=== PATIENT | male | born 1980 | race African-American/Black ===

== ENCOUNTER 2018-04-23 22:54 | Emergency (ER) | payer OTHER ==
[~2018-04-23] VITALS: Ht 172.7 cm; Wt 59.0 kg
[2018-04-23 23:10] VITALS: BP 159/88
[2018-04-24] MEDS ORDERED: HYDR-3164 PO (00:08)
[2018-04-24] MEDS ORDERED: CLIN150C14 PO (00:09)
--- NOTE | 2018-04-24 00:09 | PHYS DOC ---
Past Medical History Past Medical History: No Pertinent History Past Surgical History: Other Additional Past Surgical Histo: RIGHT HAND SKIN GRAFT Alcohol Use: Occasionally Drug Use: None Adult General Chief Complaint Chief Complaint: DENTAL PROBLEM HPI HPI 37-year-old male presents to ER with complaints of right upper dental pain with right-sided facial swelling which has been gradually worsening over the past 3-4 days. He denies any recent dental visits. He reports he took Excedrin with minimal relief in pain. He denies fever or N/V. He reports pain is at site of chipped tooth from previous dental injury. Denies recent injury. Patient is a daily smoker. Review of Systems Review of Systems Constitutional: Denies fever or chills [] Eyes: Denies change in visual acuity, redness, or eye pain [] HENT: Denies nasal congestion or sore/swollen throat. Denies difficulty swallowing. Reports rt upper front chipped tooth with swelling/pain around gum Respiratory: Denies cough or shortness of breath [] Cardiovascular: No additional information not addressed in HPI [] GI: Denies nausea, vomiting Musculoskeletal: Denies neck/jaw pain or stiffness- denies difficulty opening mouth Integument: Denies rash or skin lesions [] Neurologic: Denies headache, focal weakness or sensory changes. Denies dizziness All other systems were reviewed and found to be within normal limits, except as documented in this note. Allergies Allergies Allergies Coded Allergies Type Severity Reaction Last Updated Verified Penicillins Allergy Intermediate 04/23/18 Yes Physical Exam Physical Exam Constitutional: Well developed, well nourished, mild distress, non-toxic appearance. [] HENT: Normocephalic, atraumatic, bilateral ears normal, mucous membranes pink/dry with cigarette odor on breath- front rt upper gum swelling/erythema surrounding broken front tooth and next 2 teeth to rt upper site- no abscess visible- upper palate soft. Multiple caries on exam. No pharyngeal swelling/erythema- uvula midline, no oral exudates, nose normal. Rt side facial swelling at cheek- no orbital/eye involvement or crepitus. Eyes: Pupils equal- no orbital swelling, conjunctiva normal, no discharge. [] Neck: Normal range of motion, no tenderness/nuchal rigidity, supple, no stridor/gross adenopathy Cardiovascular:Heart rate regular Lungs & Thorax: Resp. equal/nonlabored Skin: Warm, dry, no erythema, no rash. Extremities: ROM intact, no edema. [] Neurologic: Alert and oriented X 3, normal motor function, normal sensory function, no focal deficits noted. [] Psychologic: Affect normal, judgement normal, mood normal. [] Current Patient Data Vital Signs EKG EKG [] Radiology/Procedures Radiology/Procedures [] Course & Med Decision Making Course & Med Decision Making Pt was evaluated in the ER for c/o rt upper dental infection and had swelling/erythema surrounding rt upper gum line at broken tooth- no abscess palp/visible. Pt had multiple caried. Discussed need for f/u with dentist STEPHEN- will provide dental resource sheet with d/c paperwork. Smoking cessation was discussed. Education provided on increasing flds, Ibuprofen/tylenol use, warm salt swishes, and soft food diet. Discussed d/c instructions with plans to provide Rx for Clindamycin. Will provide sm. quantity [place] for pain. Education provided on s&s to return to ER for. Dragon Disclaimer Disha Disclaimer This electronic medical record was generated, in whole or in part, using a voice recognition dictation system. Departure Departure Impression: Primary Impression: Dental caries Disposition: HOME, SELF-CARE Condition: STABLE Referrals: NO PCP (PCP) Patient Instructions: Dental Caries Additional Instructions: Follow-up with a dentist as soon as possible for further care as you have multiple dental cavities. Avoid smoking. Plenty of fluids. You can continue to take ibuprofen as directed on container or other NSAID such as Excedrin or Aleve for additional pain medication avoid taking extra then advised dosages. If taking [place] tablets do not drive or drink alcohol. Avoid taking additional Tylenol as [place] contains acetaminophen. Scripts Clindamycin Hcl (CLINDAMYCIN HCL) 150 Mg Capsule 3 CAP PO TID for 10 Days, CAP Prov: FERMIN KOENIG APRN 04/24/18 Hydrocodone/Apap 5-325 (NORCO 5-325 TABLET) 1 Each Tablet 1 TAB PO PRN Q6HRS PRN for PAIN, #8 TAB 0 Refills No driving or drinking alcohol if taking this medication Prov: FERMIN KOENIG APRN 04/24/18 FERMIN KOENIG APRN Apr 24, 2018 00:09
== END 2018-04-24 00:17 | disposition home or self-care (01) ==
LOC: ER 22:54
DX: K02.9 Dental caries, unspecified (principal); Z88.0 Allergy status to penicillin
CPT/HCPCS: 99283

== ENCOUNTER 2018-07-30 14:26 | Emergency (ER) | payer OTHER ==
[~2018-07-30] VITALS: Ht 172.7 cm; Wt 63.5 kg
[~2018-07-30 14:26] MED LIST: CLIN150C14 PO; HYDR-3164 PO
[2018-07-30 15:02] VITALS: BP 132/83
[2018-07-30 15:35] LABS: BILIRUBIN,URINE SMALL (NEG); CLARITY,URINE CLEAR; COLOR,URINE AMBER; NITRITE,URINE NEGATIVE (NEG); PROTEIN,URINE 30 mg/dL (NEG-TRACE); UROBILINOGEN,URINE 0.2 mg/dL (0.2 mg/dL)
[2018-07-30 15:40] LABS: SQUAMOUS EPITHELIAL CELL,UR FEW /LPF; WBC,URINE >40 /HPF (0-4)
[2018-07-30 15:41] LABS: BACTERIA,URINE 0 /HPF (0-FEW); RBC,URINE OCC /HPF (0-2)
[2018-07-30] MEDS ORDERED: AZITHROMYCIN 250 MG TABLET. PO ONE (15:45)
[2018-07-30] MEDS ORDERED: cefTRIAXone IM 250 MG VIAL IM ONE (15:45)
[2018-07-30] MEDS ORDERED: DOXY100C2 PO (16:40)
--- NOTE | 2018-07-30 16:40 | PHYS DOC ---
Past Medical History Past Medical History: No Pertinent History Past Surgical History: No Surgical History Additional Past Surgical Histo: RIGHT HAND SKIN GRAFT Smoking: Cigarettes, 1 Pack Per Day Alcohol Use: Occasionally Drug Use: None Adult General Chief Complaint Chief Complaint: URINARY FREQUENCY HPI HPI Patient is a 38 year old male who presents with scrotum pain, dysuria, and frequency. States the scrotum pain started today the urinary symptoms started . Rates his pain as 8 out of 10 and throbbing and sharp. Tried Excedrin before he came with minimal improvement. Review of Systems Review of Systems Constitutional: Denies fever or chills [] Eyes: Denies change in visual acuity, redness, or eye pain [] HENT: Denies nasal congestion or sore throat [] Respiratory: Denies cough or shortness of breath [] Cardiovascular: No additional information not addressed in HPI [] GI: Denies abdominal pain, nausea, vomiting, bloody stools or diarrhea [] : Reports dysuria and frequency. Musculoskeletal: Reports lower back pain denies joint pain [] Integument: Denies rash or skin lesions [] Neurologic: Denies headache, focal weakness or sensory changes [] Complete systems were reviewed and found to be within normal limits, except as documented in this note. Current Medications Current Medications Current Medications Medications (Trade) Dose Ordered Sig/Cindy Start Time Stop Time Status Last Admin Dose Admin Azithromycin (Zithromax) 1,000 mg 1X ONCE 07/30/18 15:45 07/30/18 15:47 DC 07/30/18 16:25 1,000 MG Ceftriaxone Sodium (Rocephin Im) 250 mg 1X ONCE 07/30/18 15:45 07/30/18 15:47 DC 07/30/18 16:25 250 MG Allergies Allergies Allergies Coded Allergies Type Severity Reaction Last Updated Verified Penicillins Allergy Intermediate 04/23/18 Yes Physical Exam Physical Exam Constitutional: Well developed, well nourished, no acute distress, non-toxic appearance. [] HENT: Normocephalic, atraumatic, bilateral external ears normal, oropharynx moist, no oral exudates, nose normal. [] Eyes: PERRLA, EOMI, conjunctiva normal, no discharge. [] Neck: Normal range of motion, no tenderness, supple, no stridor. [] Cardiovascular:Heart rate regular rhythm, no murmur [] Lungs & Thorax: Bilateral breath sounds clear to auscultation [] Abdomen: Bowel sounds normal, soft, no tenderness, no masses, no pulsatile masses. [] Skin: Warm, dry, no erythema, no rash. [] Back: No tenderness, no CVA tenderness. [] Extremities: No tenderness, no cyanosis, no clubbing, ROM intact, no edema. [] Neurologic: Alert and oriented X 3, normal motor function, normal sensory function, no focal deficits noted. [] Psychologic: Affect normal, judgement normal, mood normal. [] Current Patient Data Vital Signs Vital Signs Date Time Temp Pulse Resp B/P (MAP) Pulse Ox O2 Delivery O2 Flow Rate FiO2 07/30/18 15:02 98.5 93 16 132/83 (99) 99 Room Air 98.5 Lab Values Laboratory Tests Test 07/30/18 15:24 Urine Collection Type Unknown Urine Color Basilia Urine Clarity Clear Urine pH 6.0 Urine Specific [place] >=1.030 Urine Protein 30 mg/dL (NEG-TRACE) Urine Glucose (UA) Negative mg/dL (NEG) Urine Ketones (Stick) Trace mg/dL (NEG) Urine Blood Negative (NEG) Urine Nitrite Negative (NEG) Urine Bilirubin Small (NEG) Urine Urobilinogen Dipstick 0.2 mg/dL (0.2 mg/dL) Urine Leukocyte Esterase Moderate (NEG) Urine RBC Occ /HPF (0-2) Urine WBC >40 /HPF (0-4) Urine Squamous Epithelial Cells Few /LPF Urine Bacteria 0 /HPF (0-FEW) Urine Mucus Marked /LPF EKG EKG [] Radiology/Procedures Radiology/Procedures []PATIENT: FREDY MUÑOZ DACCOUNT: [id number]#: [id number] : 1980 LOCATION: ER AGE: 38 SEX: M EXAM STATUS: REG ER ORD. PHYSICIAN: ALFREDITO MEDLEY APRN REASON: testicular pain PROCEDURE: TESTICULAR/SCROTUM Testicular ultrasound HISTORY: Groin pain. Frequent urination. FINDINGS: Right testicle measures 3.8 x 2.2 x 2.9 cm. No focal lesion. Vascularity appears within normal limits as does echotexture. Right epididymis unremarkable. Left testicle measures 4.0 x 1.9 x 2.7 cm. No focal lesion. Vascularity and echotexture appears within normal limits. Small vascular structure at the left epididymal body, may represent a small varicocele. IMPRESSION: 1. No abnormality of either testicle. 2. Possible small left varicocele. Electronically signed by: Alfredito Lozano MD (07/30/2018 4:48 PM) [facility] Course & Med Decision Making Course & Med Decision Making Pertinent Labs and Imaging studies reviewed. (See chart for details) Will get UA, Testicular Ultrasound, and GC/Chlamydia Urine. Will treat prophylactically for STD with Rocephin and Azithromycin. Will also send home with Doxycycline 100 mg BID once daily for 10 days. Urine shows bacteria. Ultrasound was negative. Dragon Disclaimer Dragon Disclaimer This electronic medical record was generated, in whole or in part, using a voice recognition dictation system. Departure Departure Impression: Primary Impression: Dysuria Disposition: HOME, SELF-CARE Condition: STABLE Referrals: NO PCP (PCP) Patient Instructions: Epididymitis Additional Instructions: Thank you for visiting [facility]. We appreciate you trusting us with your care. If any additional problems come up don't hesitate to return to visit us. Please follow up with your primary care provider so they can plan additional care if needed and know about the problem that you had. If symptoms worsen come back to the Emergency Department. Any concerning symptoms that start such as chest pain, shortness of Air, weakness or numbness on one side of the body, running high fevers or any other concerning symptoms return to the ER. Please fill your medications at any pharmacy and follow the prescription instructions. If your STD testing results are positive you will get the results in 2-3 business days. You have been prescribed an antibiotic today to help fight your infection. Please take all of the antibiotic as directed. If after 48 hours the infection is not improving, please return for more care. If the infection worsens, return to ER for additional care. Scripts Doxycycline Hyclate (DOXYCYCLINE HYCLATE) 100 Mg Capsule 1 CAP PO BID for 10 Days, #20 CAP Prov: ALFREDITO MEDLEY APRN 07/30/18 ALFREDITO MEDLEY APRN Jul 30, 2018 16:40
--- NOTE | 2018-07-30 16:52 | RAD ---
Testicular ultrasound HISTORY: Groin pain. Frequent urination. FINDINGS: Right testicle measures 3.8 x 2.2 x 2.9 cm. No focal lesion. Vascularity appears within normal limits as does echotexture. Right epididymis unremarkable. Left testicle measures 4.0 x 1.9 x 2.7 cm. No focal lesion. Vascularity and echotexture appears within normal limits. Small vascular structure at the left epididymal body, may represent a small varicocele. IMPRESSION: 1. No abnormality of either testicle. 2. Possible small left varicocele. Electronically signed by: Alfredito Lozano MD (07/30/2018 4:48 PM) [facility]
== END 2018-07-30 17:05 | disposition home or self-care (01) ==
LOC: ER 14:26
DX: R30.0 Dysuria (principal); N50.812 Left testicular pain; N50.811 Right testicular pain; R35.0 Frequency of micturition; R10.30 Lower abdominal pain, unspecified; F17.210 Nicotine dependence, cigarettes, uncomplicated; Z88.0 Allergy status to penicillin
CPT/HCPCS: 76870; 81001; 87491; 87591; 96372; 99285; J0696; Q0144

== ENCOUNTER 2019-06-05 20:55 | Emergency (ER) | payer SELFPAY ==
[~2019-06-05] VITALS: Ht 172.7 cm; Wt 63.0 kg
[~2019-06-05 20:55] MED LIST changes: +DOXY100C2 PO
[2019-06-05 21:36] LABS: BILIRUBIN,URINE NEGATIVE (NEG); CLARITY,URINE CLEAR; COLOR,URINE YELLOW; NITRITE,URINE NEGATIVE (NEG); PROTEIN,URINE NEGATIVE (NEG-TRACE); UROBILINOGEN,URINE 0.2 mg/dL (0.2 mg/dL)
--- NOTE | 2019-06-05 21:36 | PHYS DOC ---
Past Medical History Past Medical History: No Pertinent History Past Surgical History: No Surgical History Additional Past Surgical Histo: RIGHT HAND SKIN GRAFT Smoking Status: Current Every Day Smoker Alcohol Use: Occasionally Drug Use: None General Adult EDM: Chief Complaint: TESTICULAR PAIN OR INJURY HPI: HPI: Patient is a 39 year old male who presents with complaint of left-sided flank pain that started on Saturday. Patient states that he was initially in the back but has progressively moved around the flank into the front and now radiates into the left testicle and down into the left inner thigh. He states he's had some episodes of nausea with vomiting as well as diaphoresis. Patient states that he has had no urinary discomfort and no penile discharge. He denies any fever. He rates pain currently at an 8 out of 10.[] Review of Systems: Review of Systems: Constitutional: Denies fever or chills. [] Respiratory: Denies cough or shortness of breath. [] Cardiovascular: Denies chest pain or edema. [] GI: Complains of left-sided abdominal/flank pain with nausea and vomiting. Denies diarrhea. [] : Denies dysuria. [] Neurologic: Denies headache, focal weakness or sensory changes. [] A full 10 point review of systems has been reviewed and is otherwise negative. Heart Score: Risk Factors: Risk Factors: DM, Current or recent (<one month) smoker, HTN, HLP, family history of CAD, obesity. Risk Scores: Score 0 - 3: 2.5% MACE over next 6 weeks - Discharge Home Score 4 - 6: 20.3% MACE over next 6 weeks - Admit for Clinical Observation Score 7 - 10: 72.7% MACE over next 6 weeks - Early Invasive Strategies Current Medications: Current Medications Medications (Trade) Dose Ordered Sig/[facility] Start Time Stop Time Status Last Admin Dose Admin Fentanyl Citrate (Fentanyl 2ml Vial) 50 mcg PRN Q15MIN PRN 06/05/19 21:30 06/06/19 21:29 Ketorolac Tromethamine (Toradol 30mg Vial) 30 mg 1X ONCE 06/05/19 22:00 06/05/19 22:01 Ondansetron HCl (Zofran) 4 mg 1X ONCE 06/05/19 22:00 06/05/19 22:01 Sodium Chloride 1,000 ml @ 1,000 mls/hr Q1H 06/05/19 22:00 06/05/19 22:59 Allergies: Allergies: Allergies Coded Allergies Type Severity Reaction Last Updated Verified Penicillins Allergy Intermediate 04/23/18 Yes Physical Exam: PE: Constitutional: Well developed, well nourished, no acute distress, non-toxic appearance. [] HENT: Normocephalic, atraumatic, bilateral external ears normal, oropharynx moist, no oral exudates, nose normal. [] Eyes: PERRLA, EOMI, conjunctiva normal, no discharge. [] Neck: Normal range of motion, no tenderness, supple, no stridor. [] Cardiovascular: Regular rate and rhythm[] Lungs & Thorax: Bilateral breath sounds clear to auscultation [] Abdomen: Bowel sounds normal, soft, no tenderness, no masses, no pulsatile masses. [] Skin: Warm, dry, no erythema, no rash. [] Extremities: No tenderness, no cyanosis, no clubbing, ROM intact. [] Neurologic: Alert and oriented X 3, no focal deficits noted. [] EKG: EKG: [] Radiology/Procedures: Radiology/Procedures: [] Impression: PROCEDURE: TESTICULAR/SCROTUM TESTICULAR/SCROTUM History: Pain and swelling for 4 days Comparison: None. Findings: Multiple grayscale, color, and duplex spectral analysis waveform images of the testicles and scrotum are submitted. Right testicle measured 4.2 x 2.6 x 2.3 cm. Left testicle measured 4.3 x 3 x 2.3 cm. No intratesticular mass is demonstrated on either side. There is mild increased of the left testicle. There is a small moderate left hydrocele with associated loculations/septation. There is a small left epididymal head cyst on the order of 0.5 cm. There is increased vascularity of the left epididymis compared with the right. There is normal low resistance vascularity of interrogated intratesticular vessels bilaterally. Impression: 1. There is asymmetric hyperemia of left epididymis likely due to epididymitis, also mild increased vascularity of the left testicle which could be a component of mild orchitis. 2. There is somewhat complex left hydrocele with associated loculation/septation. Electronically signed by: Pete Barraza MD (06/05/2019 11:11 PM) [facility] Course & Med Decision Making: Course & Med Decision Making Pertinent Labs and Imaging studies reviewed. (See chart for details) [] [place] Disclaimer: Dragon Disclaimer: This electronic medical record was generated, in whole or in part, using a voice recognition dictation system. Departure Departure Impression: Primary Impression: Epididymitis Disposition: 01 HOME, SELF-CARE Condition: STABLE Referrals: NO PCP (PCP) Patient Instructions: Epididymitis, Orchitis Additional Instructions: Take prescribed medication as directed and call to schedule follow-up ap pointment with urologist in the next week. Scripts Hydrocodone/Apap 5-325 (NORCO 5-325 TABLET) 1 Each Tablet 1-2 EACH PO PRN Q6HRS PRN for PAIN, #15 as needed for pain Prov: LIZETH ENG Jr. DO 06/05/19 Ciprofloxacin Hcl (CIPROFLOXACIN HCL) 500 Mg Tablet 1 TAB PO BID, #20 TAB Prov: LIZETH ENG Jr. DO 06/05/19 LIZETH ENG Jr. DO Jun 05, 2019 21:36
[2019-06-05 21:48] LABS: BACTERIA,URINE FEW /HPF (0-FEW); SQUAMOUS EPITHELIAL CELL,UR OCC /LPF
[2019-06-05] MEDS: IV NORMAL SALINE 1000ML BAG 1,000 ML IV SCH (22:00)
--- NOTE | 2019-06-05 22:06 | RAD ---
CT Abdomen and Pelvis without contrast History: Left flank pain Technique: Noncontrast CT imaging was performed of the abdomen and pelvis. Multiplanar images are reviewed. Exposure: One or more of the following individualized dose reduction techniques were utilized for this examination: 1. Automated exposure control 2. Adjustment of the mA and/or kV according to patient size 3. Use of iterative reconstruction technique. Comparison: None Findings: No urolithiasis or hydronephrosis is identified. Accurate evaluation of abdominal visceral organs is limited without intravenous contrast. There is no obvious focal abnormality of the spleen, liver, or pancreas. Right lobe of the liver measures about 19.7 cm longitudinal. There is no adrenal nodularity. Gallbladder is present without obvious intraluminal abnormality by CT. Accurate evaluation of bowel is limited without oral contrast and also due to the paucity of intra-abdominal and intrapelvic fat. There could be wall thickening of the small bowel in the left abdomen although poorly characterized. There is no significant free fluid or free air. Appendix cannot be confidently identified on this exam, questionably partially visualized. Impression: 1. There is no urolithiasis or hydronephrosis. Accurate evaluation of bowel is limited without oral contrast due to the paucity of fat. There may be small bowel wall thickening in the left abdomen as could be seen with enteritis although again limited evaluation. Electronically signed by: Pete Barraza MD (06/05/2019 10:03 PM) [facility]
[2019-06-05] MEDS: KETOROLAC 30 MG/ML VIAL. IVP ONE (22:09)
[2019-06-05] MEDS: ONDANSETRON PF 4 MG/2 ML VIAL. IVP ONE (22:09)
[2019-06-05] MEDS: fentaNYL PF VIAL 100 MCG/2 ML VIAL IV PRN (22:10)
[2019-06-05 22:53] LABS: BASO # 0.1 x10^3/uL (0.0-0.2); BASO % 1 % (0-3); EOS # 0.2 x10^3/uL (0.0-0.7); EOS % 1 % (0-3); HEMATOCRIT 40.7 % (39.0-53.0); HEMOGLOBIN 13.7 g/dL (13.0-17.5); LYMPH # 1.9 x10^3/uL (1.0-4.8); LYMPH % 11 % (24-48); MEAN CORPUSCULAR HEMOGLOBIN 30 pg (25-35); MEAN CORPUSCULAR HGB CONC 34 g/dL (31-37); MEAN CORPUSCULAR VOLUME 89 fL (79-100); MONO # 1.4 x10^3/uL (0.0-1.1); MONO % 8 % (0-9); NEUT # 14.3 x10^3/uL (1.8-7.7); NEUT % 79 % (31-73); PLATELET COUNT 350 x10^3/uL (140-400); RED BLOOD COUNT 4.57 x10^6/uL (4.30-5.70); RED CELL DISTRIBUTION WIDTH 14.3 % (11.5-14.5)
--- NOTE | 2019-06-05 23:14 | RAD ---
TESTICULAR/SCROTUM History: Pain and swelling for 4 days Comparison: None. Findings: Multiple grayscale, color, and duplex spectral analysis waveform images of the testicles and scrotum are submitted. Right testicle measured 4.2 x 2.6 x 2.3 cm. Left testicle measured 4.3 x 3 x 2.3 cm. No intratesticular mass is demonstrated on either side. There is mild increased of the left testicle. There is a small moderate left hydrocele with associated loculations/septation. There is a small left epididymal head cyst on the order of 0.5 cm. There is increased vascularity of the left epididymis compared with the right. There is normal low resistance vascularity of interrogated intratesticular vessels bilaterally. Impression: 1. There is asymmetric hyperemia of left epididymis likely due to epididymitis, also mild increased vascularity of the left testicle which could be a component of mild orchitis. 2. There is somewhat complex left hydrocele with associated loculation/septation. Electronically signed by: Pete Barraza MD (06/05/2019 11:11 PM) [facility]
[2019-06-05] MEDS ORDERED: CIPR500T PO (23:26)
[2019-06-05] MEDS ORDERED: HYDR-3164 PO (23:26)
[2019-06-05 23:30] VITALS: BP 152/98
[2019-06-05 23:30] LABS: CREATININE 1.1 mg/dL (0.7-1.3); GFR 90.2
[2019-06-05 23:47] LABS: ALBUMIN 3.4 g/dL (3.4-5.0); ALBUMIN/GLOBULIN RATIO 0.9 (1.0-1.7); TOTAL BILIRUBIN 0.1 mg/dL (0.2-1.0); TOTAL PROTEIN 7.2 g/dL (6.4-8.2)
[2019-06-05] MEDS: AZITHROMYCIN 250 MG TABLET. PO ONE (23:47)
== END 2019-06-05 23:50 | disposition home or self-care (01) ==
LOC: ER 20:55
DX: N45.1 Epididymitis (principal); R11.2 Nausea with vomiting, unspecified; F17.200 Nicotine dependence, unspecified, uncomplicated; Z88.0 Allergy status to penicillin
CPT/HCPCS: 36415; 74176; 76870; 80053; 81001; 83690; 85025; 87086; 96361; 96374; 96375; 99285; J1885; J2405; J3010; J7030

== ENCOUNTER → 2019-06-06 | Emergency (ER) | payer SELFPAY ==
[~2019-06-06] VITALS: Ht 172.7 cm; Wt 63.5 kg
[~2019-06-06] MED LIST changes: +CIPR500T PO
[2019-06-06 20:33] VITALS: BP 144/99
== END ==
LOC: ER 19:49
DX: R10.30 Lower abdominal pain, unspecified (principal); Z53.21 Procedure and treatment not carried out due to patient leaving prior to being seen by health care provider